=== PATIENT | female | born 1995 ===

== ENCOUNTER 2024-04-11 19:38 | Emergency (ER) | payer SELFPAY ==
[2024-04-11 19:52] VITALS: BP 126/69; PULSE 95; RESP 17; TEMP 36.3; O2SAT 99
--- NOTE | 2024-04-11 21:45 | PC.NURSE ---
pt seen walking out of department and getting into vehicle and leaving the property
== END 2024-04-11 21:45 | disposition left against medical advice (07) ==
LOC: ANHED 21:56
DX: G40.909 Epilepsy, unspecified, not intractable, without status epilepticus (principal)
CPT/HCPCS: 99199